=== PATIENT | male | born 1955 | race American Indian/Alaskan Native ===

== ENCOUNTER 2020-01-29 19:15 | Emergency (ER) | payer BC ==
--- NOTE | 2020-01-29 20:30 | Event Note ---
ED Screening Note Date of service: 01/29/20 Time: 20:29 ED Screening Note: 64-year-old -[place] male with a past medical history of diabetes, hypertension, cholesterolemia and pancreatitis presents to the emergency room for acute abdominal pain that started at 7:30 AM. Patient states he has been nausea and vomiting. Patient does admit to drinking alcohol. This initial assessment/diagnostic orders/clinical plan/treatment(s) is/are subject to change based on patients health status, clinical progression and re- assessment by fellow clinical providers in the ED. Further treatment and workup at subsequent clinical providers discretion. Patient/guardian urged not to elope from the ED as their condition may be serious if not clinically assessed and managed. Initial orders include:
[2020-01-29 20:39] VITALS: BP 183/103
[2020-01-29 21:05] LABS: Mean Corpuscular HGB Conc 36 % (32-34); Mean Corpuscular Volume 95 fl (84-94); Platelet Count 372 K/mm3 (140-440); Red Blood Count 4.76 M/mm3 (3.65-5.03)
[2020-01-29 21:06] LABS: Hemoglobin 16.2 gm/dl (11.8-15.2)
[2020-01-29 21:07] LABS: Hematocrit 45.1 % (35.5-45.6)
[2020-01-29 21:17] LABS: BUN/Creatinine Ratio 36; Blood Urea Nitrogen 29 mg/dL (9-20); Calcium 8.1 mg/dL (8.4-10.2); Hemolysis Index 250
[2020-01-29 21:29] LABS: Alanine Aminotransferase < 5 units/L (7-56)
[2020-01-29 21:44] LABS: Anisocytosis Few; Basophils % (Manual) 0 % (0.0-1.8); Eosinophils % (Manual) 0 % (0.0-4.3); Hypochromasia Rare; Total Cells Counted 100
== END 2020-01-29 23:00 | disposition left against medical advice (07) ==
LOC: ED 19:15
DX: R10.9 Unspecified abdominal pain (principal); Z53.21 Procedure and treatment not carried out due to patient leaving prior to being seen by health care provider
CPT/HCPCS: 36415; 80053; 83690; 85007; 85025